=== PATIENT | male | born 1990 | race Caucasian/White ===

== ENCOUNTER 2017-12-07 03:35 | Outpatient (CLI) | payer SELFPAY | END 2017-12-07 03:36 | disposition critical access hospital (66) | LOC: EMS 03:35 | PROVIDERS: ATTEND Surgery | DX: R41.82 Altered mental status, unspecified (principal) | CPT/HCPCS: A0425; A0429 ==

== ENCOUNTER 2017-12-07 03:57 | Emergency (ER) | payer SELFPAY ==
[2017-12-07 04:20] VITALS: BP 155/100
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
== END 2017-12-07 04:20 | disposition home or self-care (01) ==
LOC: ED 03:57
DX: Z03.89 Encounter for observation for other suspected diseases and conditions ruled out (principal); F17.200 Nicotine dependence, unspecified, uncomplicated
CPT/HCPCS: 99282; 99283